=== PATIENT | male | born 1975 | race Caucasian/White ===

== ENCOUNTER 2018-05-09 08:23 | Observation (INO) ==
[2018-05-09 08:58] LABS: Bilirubin,Urine Negative (Negative); Blood,Urine Moderate (Negative); Clarity,Urine Clear (Clear); Color,Urine Yellow (Yellow); Glucose,Urine (UA) 250 mg/dL (Normal); Ketones,Urine Trace mg/dL (Negative); Leukocyte Esterase,Urine Negative (Negative); Nitrite,Urine Negative (Negative); PH,Urine 5.5 pH Units (5.0-8.0); Protein,Urine 30 mg/dL (Neg-Trace); Specific Gravity,Urine > 1.030 (1.010-1.025); Urobilinogen,Urine Normal (Normal)
[2018-05-09] MEDS ORDERED: Ondansetron ODT 4 MG TAB.RAPDIS SL ONE (08:58)
[2018-05-09] MEDS ORDERED: Ketorolac 30 MG/ML VIAL IM ONE (09:00)
[2018-05-09 09:03] LABS: Bacteria,Urine None Seen per hpf (None-Few); Hyaline Casts,Urine Few per lpf (None-Few); RBC,Urine 30-50 per hpf (0-3); Squamous Epithelial Cell,Urine Many per lpf (None-Few)
--- NOTE | 2018-05-09 09:05 | Emergency Department Note ---
Disposition Clinical Impression: Flank pain, Ureteral calculus, MEEK (acute kidney injury) Disposition: Admitted As Inpatient Condition: Fair Referrals: Dong Camarena MD [Primary Care Provider] - Forms: ED Satisfaction Letter, Work/School Release Time of Disposition: 11:18 General Adult HPI - General Chief complaint: ED Abdominal Pain Stated complaint: Possible kidney stone Time Seen by Provider: 05/09/18 08:28 Source: patient, family Limitations: no limitations Nursing Notes Reviewed: Yes Vital Signs Reviewed: Yes - History of Present Illness HPI Narrative: 42-year-old male with a history of multiple sclerosis presents for possible kidney stone. Patient states that this has been going on and off for 2 years but has worsened the past 2 days. Pain is stated to be in the left lower back and comes around to the left lower quadrant of the abdomen and sometimes radiates into the groin. It is an intermittent ache that measures 9 out of 10 at its worst. Right now the pain is 5-6. It is associated with nausea and vomiting. Patient tried naproxen which took the edge off. Patient has never passed a kidney stone in the past 2 years. Patient reports drinking very little water. Patient denies back issues or any other medical history. Patient denies tobacco, alcohol, and drugs. Denies chest pain, shortness of breath, fever, numbness, tingling, loss of appetite, bowel changes, headache, diarrhea, constipation. Pain Scale: 9 - Related Data Home Medications Medication Instructions Recorded Confirmed Sildenafil Citrate [Revatio] 50 - 100 mg PO DAILY PRN 05/09/18 05/09/18 Allergies Allergy/AdvReac Type Severity Reaction Status Date / Time No Known Allergies Allergy Verified 03/25/16 09:31 All systems ED: reviewed and negative except as stated. Past Medical History - Past Medical History Medical history: Reports: other Psychiatric history: Reports: no psych history - Social History Smoking Status: Never smoker Smokeless Tobacco Status: No Alcohol use: Reports: none Drug use: Reports: none Physical Exam - General Limitations: no limitations General appearance: alert, in distress - Head Head exam: atraumatic, normocephalic, normal inspection - Eye Eye exam: Present: normal appearance, PERRL, EOMI - Neck Neck exam: Present: normal inspection, full ROM, trachea midline - Chest Chest inspection: Present: normal inspection, symmetric chest wall rise - Respiratory Respiratory exam: Present: normal lung sounds bilaterally - Cardiovascular Cardiovascular exam: Present: regular rate, normal rhythm, normal heart sounds - Abdominal Exam Abdominal exam: Present: soft, Non-Tender. Absent: tenderness, distention, guarding, rebound, rigidity - Extremities Exam Extremities exam: Present: normal inspection, full ROM. Absent: tenderness, pedal edema - Back Exam Back exam: Present: normal inspection, full ROM. Absent: CVA tenderness (R), CVA tenderness (L) - Neurological Exam Neurological exam: Present: alert, oriented X3, CN II-XII intact - Psychiatric Psychiatric exam: Present: normal affect, normal mood - Skin Skin exam: Present: warm, dry, intact, normal color Course Course Narrative: 42-year-old male with a history of multiple sclerosis presents for possible kidney stone that has been going on for the past 2 years and is much worse the past 2 days. Patient is alert and oriented, hemodynamically stable, and nontoxic appearance. On exam, there is no CVA tenderness or abdominal tenderness. He is now vomiting. Will provide Zofran and Toradol. Will order CT abdomen/pelvis and lab work. - Reevaluation(s) Reevaluation #1: UA reveals high-protein, high glucose, and moderate blood. Elevated WBC 14.1. Checking on patient at 9:47, half hour after med administration, patient states that nausea is gone and that pain is improved to 3/10. CT abdomen/pelvis reveals 5 mm obstructing calculus in the left ureter with moderate hydronephrosis and prostatomegaly. BMP reveals MEEK with Cr 1.41 and GFR 55. Checking on patient at 10:30, patient is again vomiting and complaining of pain. Will provide fentanyl and Phenergan. Discussed with patient about results and admission. Patient voiced understanding and agrees to admission. Spoke with urologist Dr. Richardson and he agrees to serve as consult. Spoke with hospitalist Dr. Luciano who agrees to admit. Time: 11:17 Vital Signs Temperature 98.3 F 05/09/18 08:26 Pulse Rate 83 05/09/18 08:26 Respiratory Rate 18 05/09/18 08:26 Blood Pressure 132/76 05/09/18 08:26 O2 Sat by Pulse Oximetry 99 05/09/18 08:26 Temperature 98.3 F 05/09/18 08:42 Pulse Rate 86 05/09/18 10:52 Respiratory Rate 16 05/09/18 10:52 Blood Pressure 135/79 05/09/18 10:52 O2 Sat by Pulse Oximetry 97 05/09/18 10:52 Oxygen Delivery Oxygen Delivery Room Air Medical Decision Making - Medical Records Medical records reviewed: Yes I reviewed the patient's medical records. - Lab Data Lab results reviewed: Yes I reviewed the patient's lab results. Result diagrams: 05/09/18 09:03 05/09/18 09:03 Lab Results 05/09/18 05/09/18 05/09/18 Range/Units 08:38 09:03 09:03 WBC 14.1 H (4.3-11.1) K/mcL RBC 5.00 (4.19-5.50) M/mcL Hgb 15.2 (12.9-16.9) g/dL Hct 43.5 (37.5-50.1) % MCV 87.0 (83.0-100.0) fL MCH 30.4 (28.0-33.3) pg MCHC 34.9 (31.6-35.5) g/dL RDW 12.2 (11.5-14.5) % Plt Count 287 (140-400) K/mcL MPV 8.9 L (9.4-12.4) fL Immature Gran % 0.6 (0-4) % Seg Neutrophils % 86.6 % Lymphocytes % 5.0 % Monocytes % 7.4 % Eosinophils % 0.1 % Basophils % 0.3 % Neutrophils # 12.2 H (1.6-8.9) K/mcL Lymphocytes # 0.7 (0.6-4.6) K/mcL Monocytes # 1.1 (0.0-1.3) K/mcL Eosinophils # 0.0 (0.0-0.6) K/mcL Basophils # 0.0 (0.0-0.2) K/mcL Sodium 139 (136-145) mEq/L Potassium 4.0 (3.5-5.1) mEq/L Chloride 106 (98-107) mEq/L Carbon Dioxide 25 (23-29) mEq/L BUN 19 (6-20) mg/dL Creatinine 1.41 H (0.70-1.30) mg/dL Est GFR ( Amer) > 60 (> 60) Est GFR (Non-Af Amer) 55 L (> 60) BUN/Creatinine Ratio 13 (6-26) Glucose 112 H (70-105) mg/dL Calculated Osmolality 291 (280-300) Calcium 9.6 (8.6-10.3) mg/dL Urine Color Yellow (Yellow) Urine Clarity Clear (Clear) Urine pH 5.5 (5.0-8.0) pH Units Ur Specific [place] > 1.030 H (1.010-1.025) Urine Protein 30 H (Neg-Trace) mg/dL Urine Glucose (UA) 250 H (Normal) mg/dL Urine Ketones Trace H (Negative) mg/dL Urine Blood Moderate H (Negative) Urine Nitrite Negative (Negative) Urine Bilirubin Negative (Negative) Urine Urobilinogen Normal (Normal) mg/dL Ur Leukocyte Esterase Negative (Negative) Urine Microscopic RBC 30-50 H (0-3) per hpf Urine Microscopic WBC 3-5 H (0-3) per hpf Ur Squamous Epith Cells Many H (None-Few) per lpf Urine Bacteria None Seen (None-Few) per hpf Hyaline Casts Few (None-Few) per lpf Ur Culture Indicated? NO (NO) - Radiology Data Radiology results reviewed: Yes I reviewed the patient's radiology results. CT abdomen/pelvis 05/09/2018. 5 mm obstructing calculus left ureter with moderate hydronephrosis. Prostatomegaly.
[2018-05-09] MEDS ORDERED: Ondansetron 4 MG/2 ML VIAL IVP ONE ×3 (09:06→18:33)
[2018-05-09] MEDS ORDERED: Ketorolac 15 MG/ML VIAL IVP ONE (09:07)
[2018-05-09] MEDS ORDERED: 0.9 % Sodium Chloride 1,000 ML IVC ONE (09:08)
[2018-05-09 09:12] LABS: Basophils % 0.3 %; Eosinophils % 0.1 %; Hematocrit 43.5 % (37.5-50.1); Hemoglobin 15.2 g/dL (12.9-16.9); Immature Granulocytes % 0.6 % (0-4); Lymphocytes # 0.7 K/mcL (0.6-4.6); Mean Corpuscular HGB Conc 34.9 g/dL (31.6-35.5); Mean Corpuscular Hemoglobin 30.4 pg (28.0-33.3); Mean Platelet Volume 8.9 fL (9.4-12.4); Monocytes # 1.1 K/mcL (0.0-1.3); Monocytes % 7.4 %; Neutrophils # 12.2 K/mcL (1.6-8.9); Platelet Count 287 K/mcL (140-400); Red Cell Distribution Width 12.2 % (11.5-14.5); Segmented Neutrophils % 86.6 %
[2018-05-09 09:37] LABS: BUN/Creatinine Ratio 13 (6-26); Blood Urea Nitrogen 19 mg/dL (6-20); Calcium 9.6 mg/dL (8.6-10.3); Carbon Dioxide 25 mEq/L (23-29); Chloride 106 mEq/L (98-107); Glucose 112 mg/dL (70-105); Osmolality,Calculated 291 (280-300); Sodium 139 mEq/L (136-145); eGFR For Non-African Americans 55 (> 60)
--- NOTE | 2018-05-09 09:52 | Emergency Department Note ---
Disposition Clinical Impression: Flank pain Disposition: Still a Patient Forms: ED Satisfaction Letter, Work/School Release General Adult HPI - General Chief complaint: ED Abdominal Pain Stated complaint: Possible kidney stone Time Seen by Provider: 05/09/18 08:28 Source: patient, family Limitations: no limitations - History of Present Illness Pain Scale: 9 - Related Data Home Medications Medication Instructions Recorded Confirmed Ampyra 03/25/16 Diazepam 03/25/16 Gabapentin 03/25/16 Multivitamin 03/25/16 PredniSONE 03/25/16 Viagra 03/25/16 Allergies Allergy/AdvReac Type Severity Reaction Status Date / Time No Known Allergies Allergy Verified 03/25/16 09:31 Past Medical History - Past Medical History Medical history: Reports: other Psychiatric history: Reports: no psych history - Social History Smoking Status: Never smoker Smokeless Tobacco Status: No Alcohol use: Reports: none Drug use: Reports: none Physical Exam - General Limitations: no limitations General appearance: alert, in distress Course Vital Signs Temperature 98.3 F 05/09/18 08:26 Pulse Rate 83 05/09/18 08:26 Respiratory Rate 18 05/09/18 08:26 Blood Pressure 132/76 05/09/18 08:26 O2 Sat by Pulse Oximetry 99 05/09/18 08:26 Temperature 98.3 F 05/09/18 08:42 Pulse Rate 94 05/09/18 09:04 Respiratory Rate 18 05/09/18 08:42 Blood Pressure 132/84 05/09/18 09:04 O2 Sat by Pulse Oximetry 98 05/09/18 09:04 Oxygen Delivery Oxygen Delivery Room Air Medical Decision Making - Lab Data Result diagrams: 05/09/18 09:03 05/09/18 09:03 Lab Results 05/09/18 05/09/18 05/09/18 Range/Units 08:38 09:03 09:03 WBC 14.1 H (4.3-11.1) K/mcL RBC 5.00 (4.19-5.50) M/mcL Hgb 15.2 (12.9-16.9) g/dL Hct 43.5 (37.5-50.1) % MCV 87.0 (83.0-100.0) fL MCH 30.4 (28.0-33.3) pg MCHC 34.9 (31.6-35.5) g/dL RDW 12.2 (11.5-14.5) % Plt Count 287 (140-400) K/mcL MPV 8.9 L (9.4-12.4) fL Immature Gran % 0.6 (0-4) % Seg Neutrophils % 86.6 % Lymphocytes % 5.0 % Monocytes % 7.4 % Eosinophils % 0.1 % Basophils % 0.3 % Neutrophils # 12.2 H (1.6-8.9) K/mcL Lymphocytes # 0.7 (0.6-4.6) K/mcL Monocytes # 1.1 (0.0-1.3) K/mcL Eosinophils # 0.0 (0.0-0.6) K/mcL Basophils # 0.0 (0.0-0.2) K/mcL Sodium 139 (136-145) mEq/L Potassium 4.0 (3.5-5.1) mEq/L Chloride 106 (98-107) mEq/L Carbon Dioxide 25 (23-29) mEq/L BUN 19 (6-20) mg/dL Creatinine 1.41 H (0.70-1.30) mg/dL Est GFR ( Amer) > 60 (> 60) Est GFR (Non-Af Amer) 55 L (> 60) BUN/Creatinine Ratio 13 (6-26) Glucose 112 H (70-105) mg/dL Calculated Osmolality 291 (280-300) Calcium 9.6 (8.6-10.3) mg/dL Urine Color Yellow (Yellow) Urine Clarity Clear (Clear) Urine pH 5.5 (5.0-8.0) pH Units Ur Specific [place] > 1.030 H (1.010-1.025) Urine Protein 30 H (Neg-Trace) mg/dL Urine Glucose (UA) 250 H (Normal) mg/dL Urine Ketones Trace H (Negative) mg/dL Urine Blood Moderate H (Negative) Urine Nitrite Negative (Negative) Urine Bilirubin Negative (Negative) Urine Urobilinogen Normal (Normal) mg/dL Ur Leukocyte Esterase Negative (Negative) Urine Microscopic RBC 30-50 H (0-3) per hpf Urine Microscopic WBC 3-5 H (0-3) per hpf Ur Squamous Epith Cells Many H (None-Few) per lpf Urine Bacteria None Seen (None-Few) per hpf Hyaline Casts Few (None-Few) per lpf Ur Culture Indicated? NO (NO) Attestation Statement - Attestation Attestation: I examined this patient and my medical decision-making was reviewed with the Resident Physician. I agree with the documented findings, disposition and treatment plan as described except to the extent set forth below. 42 year old male presents to the ED with complaints of left flank pain and states that he is having pain wit uriation. PAtinet states that he thinks he may have a kidney stone although he does not have a history of kidney stones. Patient has blood present in his urine without bacteria and appears uncomfortable at bedside. We will obtain a CT and give relief per IV meds.
[2018-05-09] MEDS ORDERED: *HR* FentaNYL (PF) 100 MCG/2 ML VIAL IVP ONE (10:21)
[2018-05-09] MEDS ORDERED: *HR* Promethazine 25 MG/ML VIAL IVP ONE (10:40)
[2018-05-09] MEDS ORDERED: Naloxone 0.4 MG/ML INJ IVP PRN ×2 (12:23→20:54)
[2018-05-09] MEDS ORDERED: *HR* FentaNYL (PF) 100 MCG/2 ML VIAL IVP PRN (12:26)
[2018-05-09] MEDS ORDERED: Ketorolac 30 MG/ML VIAL IVP PRN ×2 (12:26→20:54)
[2018-05-09] MEDS ORDERED: Ondansetron 4 MG/2 ML VIAL IVP PRN ×2 (12:30→20:54)
--- NOTE | 2018-05-09 12:32 | Internal Med History&Physical ---
<Cally Ly Rachana - Last Filed: 05/09/18 17:25> Date of Encounter: 05/09/18 Time of Encounter: 12:32 Internal Medicine - H&P: HPI Chief complaint: Left flank pain Admitted From: Home Plans for Post Hospital Care: Home History of present illness: Mr. Garcia is a 42 year old male with history of MS, diagnosed 8 years ago. The patient indicated that he began to have left flank pain. No difficulty urinating at this time. The patient indicated that the pain was 9-10/10. The patient denies hematuria. He was given toradol and fentanyl in the ED with relief. Ct of abd/pelvis showed a moderate left sided hydronephrosis and 5 mm obstructing calculus in the left proximal ureter. The patient was seen in the ED by urology and there are plans for surgery this afternoon. The patient creat is marginally elevated at 1.41. Plan for npo status and fluid hydration for now. Pain control. Past Med Surg Social Fam HX - Past Medical History Medical history: other Additional medical history: MS Psychiatric history: no psych history - Past Surgical History Additional surgical history: bilateral knee reconstruction - Social History Smoking Status: Never smoker Smokeless Tobacco Status: No Alcohol use: none Drug use: none Internal Medicine - H&P: Meds Sildenafil Citrate [Revatio] 50 - 100 mg PO DAILY PRN 05/09/18 [History] 3 Allergy/AdvReac Type Severity Reaction Status Date / Time No Known Allergies Allergy Verified 03/25/16 09:31 All Systems PM: A 10-system review of systems was performed and is negative for pertinent findings except as documented above in the HPI. - Constitutional Constitutional: no chills, no fever(s), no night sweats - EENT Eyes: no change in vision, no discharge, no pain, no photophobia Ears: no ear discharge, no ear pain, no tinnitus Nose, mouth and throat: no dysphagia, no nasal discharge, no neck pain, no sore throat - Cardiovascular Cardiovascular ROS IM: no chest pain, no diaphoresis, no dyspnea, no lightheadedness, no palpitations, no syncope - Respiratory Respiratory: no cough, no dyspnea, no wheezing, no excessive phlegm production - Gastrointestinal Gastrointestinal: nausea, no abdominal pain, no diarrhea, no hematemesis, no hematochezia, no melena, no vomiting - Genitourinary Genitourinary ROS male: flank pain, no hematuria - Musculoskeletal Musculoskeletal ROS IM: no numbness, no tingling - Integumentary Integumentary IM: no rash, no unusual bruising - Neurological Neurological ROS: no confusion, no convulsions, no focal weakness, no numbness, no tingling, no tremor(s) - Hematologic/Lymphatic Hematologic/Lymphatic: no easy bruising - Constitutional Vitals: Temp Pulse Resp BP Pulse Ox 98.3 F 86 16 122/68 97 05/09/18 08:42 05/09/18 10:52 05/09/18 11:27 05/09/18 11:27 05/09/18 10:52 General appearance: Present: A&O X 3, answers questions appropriately - Head Head exam: Present: atraumatic, normocephalic - Eye Eye exam: Present: PERRL, conjuntiva pink, sclera anicteric Pupils: Present: PERRL - Neck Neck exam general surgery: Present: supple, trachea midline. Absent: lymphadenopathy - Respiratory Respiratory exam: Present: CTAB. Absent: accessory muscle use, rales, rhonchi, wheezes - Cardiovascular Cardiovascular exam: Present: RRR, +S1, +S2. Absent: diastolic murmur, gallop, rubs, systolic murmur - GI/Abdominal GI/Abdominal exam: Present: normal bowel sounds, soft, no peritoneal signs. Absent: distended, tenderness - Extremities Exam Extremities exam: Present: warm, radial pulses palpable and symmetrical. Absent : calf tenderness, cyanotic, pedal edema - Neurological Exam Neurological exam: Present: CN II-XII intact, oriented X3, no focal deficits. Absent: pronater drift, facial droop, speech deficit - Skin Skin exam: Present: dry, intact Internal Med - H&P Results - Labs CBC & Chem 7: 05/09/18 09:03 05/09/18 09:03 - Assessment and plan (1) Ureteral calculus Current Visit: Yes Status: Acute Assessment and plan: Patient here with Left flank pain that was intermittent over the past 2 days. 5MM obstructing stone was seen in the left proximal ureter along with mild hydronephrosis and prostate enlargement. Strain all urine Urology was consulted [facility]'s Pain control Monitor daily labs (2) MEEK (acute kidney injury) Current Visit: Yes Status: Acute Assessment and plan: Monitor daily labs Gentle IVF's Strict I's and O's (3) Multiple sclerosis Current Visit: Yes Status: Chronic Assessment and plan: Controlled. Managed outpatient. - Time Spent With Patient Total time spent is greater than 50% in coordination of care (as documented) at patient's floor/unit and/or counseling patient: less than 15 minutes <AkbarJana herrera - Last Filed: 05/09/18 19:54> Date of Encounter: 05/09/18 Internal Medicine - H&P: HPI Admitted From: Home Plans for Post Hospital Care: Home History of present illness: Mr. Garcia is a 42 year old male that presented with left flank pain and was found to have left obstructing renal calculi. All Systems PM: A 10-system review of systems was performed and is negative for pertinent findings except as documented above in the HPI. - Constitutional Vitals: Temp Pulse Resp BP Pulse Ox 98.6 F 93 14 126/74 97 05/09/18 19:29 05/09/18 19:29 05/09/18 19:29 05/09/18 19:29 05/09/18 19:29 General appearance: Present: A&O X 3, no acute distress - Head Head exam: Present: atraumatic, normocephalic - Eye Eye exam: Present: PERRL, conjuntiva pink, sclera anicteric Pupils: Present: PERRL - Neck Neck exam general surgery: Present: supple, trachea midline. Absent: lymphadenopathy - Respiratory Respiratory exam: Present: CTAB. Absent: accessory muscle use, rales, rhonchi, wheezes - Cardiovascular Cardiovascular exam: Present: RRR, +S1, +S2. Absent: diastolic murmur, gallop, rubs, systolic murmur - GI/Abdominal GI/Abdominal exam: Present: normal bowel sounds, soft, no peritoneal signs. Absent: distended, tenderness - Extremities Exam Extremities exam: Present: warm, radial pulses palpable and symmetrical. Absent : calf tenderness, cyanotic, pedal edema - Neurological Exam Neurological exam: Present: CN II-XII intact, oriented X3, no focal deficits. Absent: pronater drift, facial droop, speech deficit - Skin Skin exam: Present: dry, intact Internal Med - H&P Results - Labs CBC & Chem 7: 05/09/18 09:03 05/09/18 09:03 - Attending Attestation I performed a history and physical exam of the patient and discussed his management with the INSURANCE COUNSELOR. I reviewed the INSURANCE COUNSELOR's note and agree with the documented findings and plan of care. - Time Spent With Patient Total time spent is greater than 50% in coordination of care (as documented) at patient's floor/unit and/or counseling patient: 25 - 35 minutes
[2018-05-09] MEDS ORDERED: *HR* OxyCODONE Immed Rel 5 MG TABLET PO PRN ×4 (12:43→20:54)
[2018-05-09] MEDS ORDERED: *HR* Morphine 2 MG/ML SYRINGE IVP ONE (12:44)
--- NOTE | 2018-05-09 12:58 | Urology - Consult Note ---
<Dulce Maria Jordan N - Last Filed: 05/09/18 14:04> Date of Encounter: 05/09/18 Time of Encounter: 11:30 - Assessment and Plan (1) Ureteral calculus Current Visit: Yes Status: Acute Assessment and plan: Patient is a 42 year old male who presented to the Emergency Department with a 5mm left proximal ureteral stone. I discussed with the patient and his the risks and benefits of a ureteroscopic stone extraction with holmium laser lithotripsy and basket retrieval. Patient and his verbalize understanding and wish to proceed with surgery. I also specifically counseled him on the possibility of two procedures being required to fully extract the proximal stone , including ureteral stent placement. The patient agrees, consent is signed, patient and wishes to proceed. Patient is admitted to the hospitalist service and is NPO. Urology CN:HPI Consult date: 05/09/18 Reason for consult Urology: Other (left ureteral stone) History of present illness: She was a 42-year-old male who presents the emergency department with abdominal pain difficult urination. The patient states his acute symptoms began 2 days ago with worsening colicky abdominal pain, urinary frequency and urinary hesitancy. The patient states this is the first renal or ureteral stone he is experienced; however patient states he has noticed intermittent back pain and changes in his voiding stream over the last 2 years. Patient was unsure if voiding difficulty was due to Multiple Sclerosis, so he has not reported this to PCP or sought urology referral. The patient is currently resting comfortably and denies fever, chills, dysuria or hematuria. Past Med Surg Social Fam HX - Past Medical History Medical history: other Additional medical history: MS Psychiatric history: no psych history - Past Surgical History Additional surgical history: bilateral knee reconstruction - Social History Smoking Status: Never smoker Smokeless Tobacco Status: No Alcohol use: none Drug use: none Medications and Allergies Sildenafil Citrate [Revatio] 50 - 100 mg PO DAILY PRN 05/09/18 [History] 3 Allergy/AdvReac Type Severity Reaction Status Date / Time No Known Allergies Allergy Verified 03/25/16 09:31 Review of Systems - Constitutional as per HPI, no chills, no fatigue, no fever(s) - EENT Nose, mouth and throat: no dizziness, no headache(s) - Cardiovascular no chest pain, no dyspnea - Respiratory no cough, no dyspnea - Gastrointestinal abdominal pain, nausea, no change in bowel habits, no vomiting - Genitourinary change in urinary stream, difficulty urinating, urinary frequency, urinary hesitancy, urinary urgency, no dysuria, no flank pain, no hematuria, no testicular pain - Musculoskeletal no back pain, no muscle weakness - Integumentary no rash, no swelling - Neurological no confusion, no syncope - Psychiatric no anxiety, no confusion Exam Initial Vital Signs Temp Pulse Resp BP Pulse Ox 98.3 F 83 18 132/76 99 05/09/18 08:26 05/09/18 08:26 05/09/18 08:26 05/09/18 08:26 05/09/18 08:26 - General physical appearance Present: well developed, well nourished, no distress, no pain - Eyes Present: PERRL, normal ocular movement - ENT Present: normal nares. Absent: nasal discharge - Neck Present: no masses, trachea midline - Respiratory Present: normal respiratory effort - Cardiovascular Cardiovascular exam IM: RRR - Abdomen Abdomen: Present: soft, non tender - Genitourinary other (no CVAT) - Integumentary Present: no rash, no abnormal pigmentation - Neurologic Present: normal coordination. Absent: disoriented - Musculoskeletal Present: other (normal posture, no pedal edema ) Urology Results - Labs 05/09/18 09:03 05/09/18 09:03 Abnormal lab results WBC 14.1 K/mcL (4.3-11.1) H 05/09/18 09:03 MPV 8.9 fL (9.4-12.4) L 05/09/18 09:03 Neutrophils # 12.2 K/mcL (1.6-8.9) H 05/09/18 09:03 Creatinine 1.41 mg/dL (0.70-1.30) H 05/09/18 09:03 Est GFR (Non-Af Amer) 55 (> 60) L 05/09/18 09:03 Glucose 112 mg/dL (70-105) H 05/09/18 09:03 Ur Specific [place] > 1.030 (1.010-1.025) H 05/09/18 08:38 Urine Protein 30 mg/dL (Neg-Trace) H 05/09/18 08:38 Urine Glucose (UA) 250 mg/dL (Normal) H 05/09/18 08:38 Urine Ketones Trace mg/dL (Negative) H 05/09/18 08:38 Urine Blood Moderate (Negative) H 05/09/18 08:38 Urine Microscopic RBC 30-50 per hpf (0-3) H 05/09/18 08:38 Urine Microscopic WBC 3-5 per hpf (0-3) H 05/09/18 08:38 Ur Squamous Epith Cells Many per lpf (None-Few) H 05/09/18 08:38 All other labs normal. - Imaging CT scan - abdomen: report reviewed, image reviewed CT scan - pelvis: report reviewed, image reviewed Consult Discharge Plan - Plan Referrals: Dong Camarena MD [Primary Care Provider] - <Jovany Richardson - Last Filed: 05/09/18 18:15> Date of Encounter: 05/09/18 Exam Initial Vital Signs Temp Pulse Resp BP Pulse Ox 98.3 F 83 18 132/76 99 05/09/18 08:26 05/09/18 08:26 05/09/18 08:26 05/09/18 08:26 05/09/18 08:26 Urology Results - Labs 05/09/18 09:03 05/09/18 09:03 Abnormal lab results WBC 14.1 K/mcL (4.3-11.1) H 05/09/18 09:03 MPV 8.9 fL (9.4-12.4) L 05/09/18 09:03 Neutrophils # 12.2 K/mcL (1.6-8.9) H 05/09/18 09:03 Creatinine 1.41 mg/dL (0.70-1.30) H 05/09/18 09:03 Est GFR (Non-Af Amer) 55 (> 60) L 05/09/18 09:03 Glucose 112 mg/dL (70-105) H 05/09/18 09:03 Ur Specific [place] > 1.030 (1.010-1.025) H 05/09/18 08:38 Urine Protein 30 mg/dL (Neg-Trace) H 05/09/18 08:38 Urine Glucose (UA) 250 mg/dL (Normal) H 05/09/18 08:38 Urine Ketones Trace mg/dL (Negative) H 05/09/18 08:38 Urine Blood Moderate (Negative) H 08/08/18 08:38 Urine Microscopic RBC 30-50 per hpf (0-3) H 18 08:38 Urine Microscopic WBC 3-5 per hpf (0-3) H 18 08:38 Ur Squamous Epith Cells Many per lpf (None-Few) H 18 08:38 All other labs normal. - Attending Attestation The patient was seen and examined with the PA. He has a left proximal ureteral stone. Plan for left ureteroscopy, laser lithotripsy, and stent placement. He was informed of the risks of the procedure including but not limited to bleeding , infection, injury to other structures, need for further procedures, stent irritation, incomplete fragmentation, ureteral perforation, need for nephrostomy tube, need for open repair, risks unforeseen, and the risk of anesthesia. He is willing to proceed. He denies any family history of nephrolithiasis. His does have a history of stones, but his parents do not have stones.
[2018-05-09] MEDS: 0.9 % Sodium Chloride 1,000 ML IVC SCH ×3 (14:06→21:55)
--- NOTE | 2018-05-09 17:08 | Anesthesia Evaluation PreOp ---
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 (MS dx 2009 [not currently medicated]) Other Medical History: Denies Any Significant HX Anesthesia History: No Prior Anesthetic Complications, Past Anesthesia (B - corrective knee surgery/reconstruction [for Bowed legs], collar bone repair) Alcohol Use: none Drug use: none Medications and Allergies Sildenafil Citrate [Revatio] 50 - 100 mg PO DAILY PRN 05/09/18 [History] 3 Allergy/AdvReac Type Severity Reaction Status Date / Time No Known Allergies Allergy Verified 03/25/16 09:31 - Meds/Allergy Pre-op Review Medications Reviewed: Yes Allergies Reviewed: Yes Beta Blockers on Current Med List: No Anesthesia Results - Labs 05/09/18 09:03 05/09/18 09:03 Laboratory Results WBC 14.1 K/mcL (4.3-11.1) H 05/09/18 09:03 RBC 5.00 M/mcL (4.19-5.50) 05/09/18 09:03 Hgb 15.2 g/dL (12.9-16.9) 05/09/18 09:03 Hct 43.5 % (37.5-50.1) 05/09/18 09:03 MCV 87.0 fL (83.0-100.0) 05/09/18 09:03 MCH 30.4 pg (28.0-33.3) 05/09/18 09:03 MCHC 34.9 g/dL (31.6-35.5) 05/09/18 09:03 RDW 12.2 % (11.5-14.5) 05/09/18 09:03 Plt Count 287 K/mcL (140-400) 05/09/18 09:03 MPV 8.9 fL (9.4-12.4) L 05/09/18 09:03 Immature Gran % 0.6 % (0-4) 05/09/18 09:03 Seg Neutrophils % 86.6 % 05/09/18 09:03 Lymphocytes % 5.0 % 05/09/18 09:03 Monocytes % 7.4 % 05/09/18 09:03 Eosinophils % 0.1 % 05/09/18 09:03 Basophils % 0.3 % 05/09/18 09:03 Neutrophils # 12.2 K/mcL (1.6-8.9) H 05/09/18 09:03 Lymphocytes # 0.7 K/mcL (0.6-4.6) 05/09/18 09:03 Monocytes # 1.1 K/mcL (0.0-1.3) 05/09/18 09:03 Eosinophils # 0.0 K/mcL (0.0-0.6) 05/09/18 09:03 Basophils # 0.0 K/mcL (0.0-0.2) 05/09/18 09:03 Sodium 139 mEq/L (136-145) 05/09/18 09:03 Potassium 4.0 mEq/L (3.5-5.1) 05/09/18 09:03 Chloride 106 mEq/L (98-107) 05/09/18 09:03 Carbon Dioxide 25 mEq/L (23-29) 05/09/18 09:03 BUN 19 mg/dL (6-20) 05/09/18 09:03 Creatinine 1.41 mg/dL (0.70-1.30) H 05/09/18 09:03 Est GFR ( Amer) > 60 (> 60) 05/09/18 09:03 Est GFR (Non-Af Amer) 55 (> 60) L 05/09/18 09:03 BUN/Creatinine Ratio 13 (6-26) 05/09/18 09:03 Glucose 112 mg/dL (70-105) H 05/09/18 09:03 Calculated Osmolality 291 (280-300) 05/09/18 09:03 Calcium 9.6 mg/dL (8.6-10.3) 05/09/18 09:03 Urine Color Yellow (Yellow) 05/09/18 08:38 Urine Clarity Clear (Clear) 05/09/18 08:38 Urine pH 5.5 pH Units (5.0-8.0) 05/09/18 08:38 Ur Specific [place] > 1.030 (1.010-1.025) H 05/09/18 08:38 Urine Protein 30 mg/dL (Neg-Trace) H 05/09/18 08:38 Urine Glucose (UA) 250 mg/dL (Normal) H 05/09/18 08:38 Urine Ketones Trace mg/dL (Negative) H 05/09/18 08:38 Urine Blood Moderate (Negative) H 05/09/18 08:38 Urine Nitrite Negative (Negative) 05/09/18 08:38 Urine Bilirubin Negative (Negative) 05/09/18 08:38 Urine Urobilinogen Normal mg/dL (Normal) 05/09/18 08:38 Ur Leukocyte Esterase Negative (Negative) 05/09/18 08:38 Urine Microscopic RBC 30-50 per hpf (0-3) H 05/09/18 08:38 Urine Microscopic WBC 3-5 per hpf (0-3) H 05/09/18 08:38 Ur Squamous Epith Cells Many per lpf (None-Few) H 05/09/18 08:38 Urine Bacteria None Seen per hpf (None-Few) 05/09/18 08:38 Hyaline Casts Few per lpf (None-Few) 05/09/18 08:38 Ur Culture Indicated? NO (NO) 05/09/18 08:38 Impressions Abdomen/Pelvis CT 05/09/18 08:57 IMPRESSION: Moderate left-sided hydronephrosis due to a 5 mm obstructing calculus in the left proximal ureter. Prostatomegaly. D/ / González Valenzuela MD / González Valenzuela MD Interpreting Provider: González Valenzuela MD Anesthesia Exam Vital Signs Temp Pulse Resp BP Pulse Ox 05/09/18 13:36 99.3 F 91 15 125/74 99 05/09/18 11:27 16 122/68 05/09/18 10:52 86 16 135/79 97 05/09/18 10:14 99 22 100 05/09/18 09:04 94 132/84 98 05/09/18 08:42 98.3 F 83 18 132/76 99 05/09/18 08:26 98.3 F 83 18 132/76 99 Intake and Output 05/09/18 05/09/18 05/09/18 07:59 15:59 23:59 Intake Total 1000 / 1000 Balance 1000 / 1000 Intake: IV Fluids 1000 / 1000 0.9 % Sodium Chloride 1,000 ML 1000 / 1000 @ 999 mls/hr IVC .Q1H1M ONE Rx# :[id number] Other: Meal NPO Stool Characteristics Normal for Patient Weight 73.028 kg Patient Weight 05/09/18 23:59 Weight 73.028 kg Height: 6' Weight: 161# BMI = 22 NPO (# of Hours): MNoc - HEENT Pupil (Motor): Pupils equal, EOMI Mallampati: II Teeth: Normal Oral Opening: Greater than 3 - GREEN FEED ATTENDANT LOC: Oriented GREEN FEED ATTENDANT Motor: Normal RUE, Normal LUE, Normal RLE, Normal LLE, Normal Face GREEN FEED ATTENDANT Sensory: Normal: RUE, LUE, RLE, LLE, Face - Cardiac Rhythm: Regular Murmur: None - Pulmonary Breath Sounds: bilateral Clear Respiratory Effort: Symmetrical Anesthesia Assess/Plan ASA Score: 2 Modified [place] Scale for Level of Consciousness: Cooperative, oriented, and tranquil Anesthetic Plan: General Monitoring Plan: Standard Monitors Recovery Plan: PACU Anes Supervising Prov Stmt: PT seen/evaluated, R&B discussed, questions answered and consent obtained. Suzi Mcleod MD
[2018-05-09] MEDS ORDERED: Acetaminophen IV 1,000 MG/100 ML INFUS..BTL ONE (17:44)
[2018-05-09] MEDS ORDERED: Dexamethasone 4 MG/ML VIAL ONE ×2 (18:04→18:27)
[2018-05-09] MEDS ORDERED: *HR* FentaNYL (PF) 100 MCG/2 ML VIAL ONE (18:04)
[2018-05-09] MEDS ORDERED: Lidocaine -MPF 2% 2 ML VIAL ONE (18:04)
[2018-05-09] MEDS ORDERED: *HR* Propofol 200 MG/20 ML VIAL IVP ONE (18:04)
[2018-05-09] MEDS ORDERED: Ondansetron 4 MG/2 ML VIAL ONE (18:04)
[2018-05-09] MEDS ORDERED: *HR* Midazolam HCl 2 MG/2 ML VIAL ONE (18:09)
[2018-05-09] MEDS ORDERED: *HR* Meperidine 25 MG/ML SYRINGE IVP PRN (18:33)
[2018-05-09] MEDS ORDERED: *HR* Promethazine 25 MG/ML VIAL IVP PRN (18:33)
[2018-05-09] MEDS ORDERED: Dexamethasone 4 MG/ML VIAL IVP ONE (18:33)
[2018-05-09] MEDS ORDERED: *HR* HYDROmorphone (PF) 1 MG/ML SYRINGE IVP PRN (18:33)
--- NOTE | 2018-05-09 19:06 | Operative Note ---
Date of procedure: 05/09/18 Pre-op diagnosis: Left ureteral stone Post-op diagnosis: same Procedure: Left ureteroscopy, basket stone extraction, left ureteral stent placement Implants: 6-Moz[place] by 28 cm double-J stent Complications: None Anesthesia: GETA Surgeon: Jovany Richardson Was there an itinerant teacher assistant present: No Estimated blood loss (cc): 1 Specimen: Left ureteral stone Condition: stable Disposition: PACU Procedure in Detail: Indications: Mr. Garcia is a 42-year-old male who has a history of left flank pain. A CT scan showed a stone within his left proximal ureter. He elected to undergo a left ureteroscopy, laser lithotripsy, and basket stone extraction with stent placement. He was aware of the risks of the procedure including but not limited to bleeding, infection, injury to other structures, need for further procedures , stent irritation, need for nephrostomy tube, need for open repair, risks otherwise unforeseen, and the risk of anesthesia. He is willing to proceed. Procedure in Detail: After informed consent was obtained the patient was brought back to the operating room and placed in supine position. A time out was performed. General anesthesia was administered and an LMA was placed. He was then placed in the lithotomy position. He was prepped and draped in the usual sterile fashion. Cystoscopy was performed. The anterior urethra was normal. There was no evidence of bladder tumors. The ureteral orifices were in the normal orthotopic position. There was no duplication of the ureteral orifices. The zip wire was placed in the left ureteral orifice. The wire was then brought up into the kidney under fluoroscopic guidance. I then passed the 8/10 [place] ureteral dilator. The dilator was removed. I advanced a semirigid ureteroscope into the kidney. The stone had moved into the kidney with passage of the wire. A sensor wire was placed in the scope was removed. The flexible ureteroscope was then advanced into the kidney. The stone was seen in the upper pole calyx. The stone was basketed. The proximal ureter was tight and in removal the stone broke while in the basket. One fragment was removed. The ureteroscope was advanced alongside the zip wire and brought into the proximal ureter. The remaining stone fragments were basket extracted. There was no injury to the ureter. The scope was removed. A 6 [place] by 28cm JJ stent was then placed. The dangle strings were left intact and secured to the penis with a Tegaderm. The bladder was drained. The patient was then awakened from general anesthesia and brought to recovery room in good condition. All sponge, needle, and instrument counts were correct.
--- NOTE | 2018-05-09 19:35 | Anesthesia Evaluation Post Op ---
Date of Encounter: 05/09/18 Time of Encounter: 19:34 - Vital Signs Vital Signs: Vital Signs/O2 Sat, Most Current Temp Pulse Resp BP Pulse Ox 98.6 F 93 14 126/74 97 05/09/18 19:29 05/09/18 19:29 05/09/18 19:29 05/09/18 19:29 05/09/18 19:29 - Lungs Lungs: Clear Ascult./Percussion - Airway Airway: Non-obstructed - Cardiovascular Regular Rate - Mental Status Mental Status: Asleep with brisk response to light stimulation - Pain Pain Scale: 0 - Nausea Vomiting Nausea Vomiting: Not Present - Hydration Hydration: NPO - Discharge PostOp Status: Transfer Patient to floor Attestation: I have assessed this patient and find they meet discharge criteria.
[2018-05-10] MEDS: 0.9 % Sodium Chloride 1,000 ML IVC SCH (03:23)
[2018-05-10 06:08] LABS: Basophils % 0.1 %; Hematocrit 39.2 % (37.5-50.1); Immature Granulocytes % 0.6 % (0-4); Lymphocytes # 0.8 K/mcL (0.6-4.6); Lymphocytes % 5.5 %; Mean Corpuscular HGB Conc 34.7 g/dL (31.6-35.5); Mean Corpuscular Hemoglobin 30.8 pg (28.0-33.3); Mean Corpuscular Volume 88.7 fL (83.0-100.0); Mean Platelet Volume 9.3 fL (9.4-12.4); Monocytes # 0.9 K/mcL (0.0-1.3); Monocytes % 6.2 %; Neutrophils # 12.1 K/mcL (1.6-8.9); Platelet Count 256 K/mcL (140-400); Red Blood Count 4.42 M/mcL (4.19-5.50); Red Cell Distribution Width 12.5 % (11.5-14.5); Segmented Neutrophils % 87.6 %
[2018-05-10 06:15] LABS: Hemoglobin 13.6 g/dL (12.9-16.9)
[2018-05-10 06:31] LABS: BUN/Creatinine Ratio 15 (6-26); Blood Urea Nitrogen 16 mg/dL (6-20); Calcium 9.1 mg/dL (8.6-10.3); Carbon Dioxide 21 mEq/L (23-29); Chloride 109 mEq/L (98-107); Glucose 151 mg/dL (70-105); Osmolality,Calculated 292 (280-300); Potassium 4.1 mEq/L (3.5-5.1); Sodium 139 mEq/L (136-145); eGFR For Non-African Americans > 60 (> 60)
[2018-05-10 07:03] VITALS: BP 123/75
--- NOTE | 2018-05-10 09:13 | Urology Progress Note ---
Date of Encounter: 05/10/18 Time of Encounter: 09:10 - Assessment and Plan (1) Ureteral calculus Current Visit: Yes Status: Acute Assessment and plan: Patient is a 42-year-old male who is one day status post left ureteroscopic stone extraction. Patient is feeling well with no concerns. I reviewed postoperative restrictions, expectations, activity, and follow-up. I also advised the patient to self remove his stent on Monday. Progress Note Subjective: no new complaints, feels better, tolerating a regular diet, afebrile Narrative: Patient seen and examined sitting upright in bed in no apparent distress. Patient is feeling much better and has no new concerns. Patient is tolerating normal diet and voiding without difficulty. Patient denies significant pain, chest pain, shortness of breath, fever, chills, calf pain. Patient verbalizes desire for discharge. Objective Initial Vital Signs Temp Pulse Resp BP Pulse Ox 98.3 F 83 18 132/76 99 05/09/18 08:26 05/09/18 08:26 05/09/18 08:26 05/09/18 08:26 05/09/18 08:26 - General physical appearance Present: well developed, well nourished, no distress, no pain - Respiratory Present: normal expansion, normal respiratory effort - Abdomen Present: soft, non tender - Genitourinary Present: other (no CVAT) - Integumentary Present: no rash, no abnormal pigmentation - Musculoskeletal Present: normal gait, normal posture - Psychiatric Present: oriented to time, oriented to person, oriented to place, speech is normal, memory intact - Labs 05/10/18 05:50 05/10/18 05:50 Diabetes panel 05/10/18 Range/Units 05:50 Sodium 139 (136-145) mEq/L Potassium 4.1 (3.5-5.1) mEq/L Chloride 109 H (98-107) mEq/L Carbon Dioxide 21 L (23-29) mEq/L BUN 16 (6-20) mg/dL Creatinine 1.09 (0.70-1.30) mg/dL Glucose 151 H (70-105) mg/dL Calcium 9.1 (8.6-10.3) mg/dL Calcium panel 05/10/18 Range/Units 05:50 Calcium 9.1 (8.6-10.3) mg/dL Pituitary panel 05/10/18 Range/Units 05:50 Sodium 139 (136-145) mEq/L Potassium 4.1 (3.5-5.1) mEq/L Chloride 109 H (98-107) mEq/L Carbon Dioxide 21 L (23-29) mEq/L BUN 16 (6-20) mg/dL Creatinine 1.09 (0.70-1.30) mg/dL Glucose 151 H (70-105) mg/dL Calcium 9.1 (8.6-10.3) mg/dL Adrenal panel 05/10/18 Range/Units 05:50 Sodium 139 (136-145) mEq/L Potassium 4.1 (3.5-5.1) mEq/L Chloride 109 H (98-107) mEq/L Carbon Dioxide 21 L (23-29) mEq/L BUN 16 (6-20) mg/dL Creatinine 1.09 (0.70-1.30) mg/dL Glucose 151 H (70-105) mg/dL Calcium 9.1 (8.6-10.3) mg/dL - VTE Documentation of Mechanical Device: Intermittent pneumatic compression device Consult Discharge Plan - Plan Referrals: Jovany Richardson MD [Partnered Physician] - Dong Camarena MD [Primary Care Provider] -
--- NOTE | 2018-05-10 10:11 | Discharge Summary ---
- NOTES TO OUTPATIENT PROVIDER Notes to Outpatient Provider: Follow up with PCP in 2-3 days after discharge. Recheck BMP and CBC at that time. Follow up with urology as directed. Orders not resulted at time of discharge: Pending orders 05/09/18 18:21 XR KUB [XR] Routine 05/09/18 18:50 Surgical Pathology [PTH] Routine Date of Encounter: 05/10/18 Time of Encounter: 10:09 - Discharge Diagnosis (1) Ureteral calculus Priority: Primary Status: Resolved (2) MEEK (acute kidney injury) Priority: Secondary Status: Resolved (3) Multiple sclerosis Priority: Secondary Status: Chronic Hospital course: Mr. Garcia is a 42 year old male who admitted for 5 mm obstructing stone in left proximal ureter along with mild hydronephrosis and prostate enlargement. He was admitted for observation to general medical floor. Urology was consulted. He had mild MEEK which resolved with IVF. Pain control was obtained with toradol and oxycodone PRN. He was taken to OR by urology and had left ureteroscopy, basket stone extraction, and left ureteral stent placement. He was advised on post-operative care and to remove stent at home in 4 days. He is pain-free and back to baseline today. He will follow up with PCP in 2-3 days after discharge. Repeat BMP and CBC can be checked at that time. He will follow up with urology as directed. Patient has met maximum benefit of this hospitalization and will be discharged home in stable condition. Discharge discussed with: patient, nurse - Time Spent with Patient Total time spent providing and/or coordinating discharge services: Less than 30 minutes - Discharge Medications Home Medications: Sildenafil Citrate [Revatio] 50 - 100 mg PO DAILY PRN 05/09/18 [History] Allergies/Adverse Reactions: 3 Allergy/AdvReac Type Severity Reaction Status Date / Time No Known Allergies Allergy Verified 03/25/16 09:31 Date of admission: 05/09/18 11:22 Primary care physician: Dong Camarena MD Consults: Urology Discharging clinician: Panchito Merritt Anticipated date of discharge: 05/10/18 - Constitutional Vitals: Temp Pulse Resp BP Pulse Ox 98.2 F 88 16 123/75 97 05/10/18 06:59 05/10/18 06:59 05/10/18 06:59 05/10/18 06:59 05/10/18 06:59 General appearance: Present: cooperative, A&O X 3, pleasant, no acute distress, answers questions appropriately - Respiratory Respiratory exam: Present: CTAB. Absent: accessory muscle use, rales, rhonchi, wheezes Additional comments: Normal WOB - Cardiovascular Cardiovascular exam: Present: RRR, +S1, +S2. Absent: diastolic murmur, gallop, rubs, systolic murmur Additional comments: No BLE edema - GI/Abdominal GI/Abdominal exam: Present: normal bowel sounds, soft. Absent: distended, hepatomegaly, mass, splenomegaly, tenderness - Back Exam Back exam: Absent: CVA tenderness (L), CVA tenderness (R) - Psychiatric Psychiatric exam: Present: normal affect, normal mood. Absent: agitated, anxious, depressed - Skin Skin exam: Present: dry, intact, warm. Absent: cyanosis, erythema, rash - Patient Status Disposition: Home, Self-Care Condition: Good Functional capacity at discharge: independent ambulation Overall status at discharge: patient is progressing back to baseline - Discharge Instructions Follow Up With: Jovany Richardson MD [Partnered Physician] - (Office will call patient at home with date and time of appt. Thank you) Dong Camarena MD [Primary Care Provider] - Additional Instructions: Follow up with PCP in 2-3 days after discharge. Recheck BMP and CBC at that time. Follow up with urology as directed. - Diet and Activity Activity: resume usual activities as tolerated Diet: advance to your usual diet - VTE Documentation of Mechanical Device: Intermittent pneumatic compression device
== END 2018-05-10 10:40 | disposition home or self-care (01) ==
LOC: 3ANU 08:23 → EMEROO 08:23 → 3ANU 11:23
PROVIDERS: ADMIT Internal Medicine; ATTEND Internal Medicine

== ENCOUNTER 2022-02-27 23:59 | Observation (INO) ==
[2022-02-28] MEDS ORDERED: Isovue-370 500 ML BOTTLE IVP ONE (03:42)
[2022-02-28] MEDS ORDERED: Morphine Sulfate 2 MG/ML SYRINGE IVP ONE (03:43)
[2022-02-28 04:34] LABS: Basophils % 0.1 %; Eosinophils % 0.1 %; Hematocrit 48.5 % (37.5-50.1); Hemoglobin 16.1 g/dL (12.9-16.9); Immature Granulocytes % 0.6 % (0-4); Lymphocytes # 0.9 K/mcL (0.6-4.6); Lymphocytes % 5.2 %; Mean Corpuscular HGB Conc 33.2 g/dL (31.6-35.5); Mean Corpuscular Hemoglobin 29.5 pg (28.0-33.3); Mean Corpuscular Volume 88.8 fL (83.0-100.0); Mean Platelet Volume 9.1 fL (9.4-12.4); Monocytes # 0.8 K/mcL (0.0-1.3); Monocytes % 4.9 %; Platelet Count 405 K/mcL (140-400); Red Blood Count 5.46 M/mcL (4.19-5.50); Red Cell Distribution Width 13.2 % (11.5-14.5); Segmented Neutrophils % 89.1 %; White Blood Count 16.8 K/mcL (4.3-11.1)
[2022-02-28 04:52] LABS: BUN/Creatinine Ratio 20 (6-26); Blood Urea Nitrogen 21 mg/dL (6-20); Calcium 10.7 mg/dL (8.6-10.3); Carbon Dioxide 27 mEq/L (23-29); Chloride 99 mEq/L (98-107); Glucose 114 mg/dL (70-105); Osmolality,Calculated 290 (280-300); Potassium 3.4 mEq/L (3.5-5.1); Sodium 138 mEq/L (136-145); eGFR For African Americans > 60 (> 60); eGFR For Non-African Americans > 60 (> 60)
[2022-02-28 05:25] LABS: INR 1.1; Prothrombin Time 12.4 Seconds (9.4-12.1)
[2022-02-28 05:27] LABS: Activated Partial Thrombo Time 27.3 Seconds (26.0-36.0)
[2022-02-28] MEDS ORDERED: Gadolinium Contrast Agent (WT Based) IV PRN ×2 (06:26→06:39)
[2022-02-28] MEDS ORDERED: *HR* HYDROcodone/Acet 5/325 mg TABLET PO ONE (06:30)
[2022-02-28] MEDS ORDERED: Ketorolac 30 MG/ML VIAL IVP ONE (06:30)
[2022-02-28] MEDS ORDERED: Pantoprazole 40 MG VIAL IVP ONE (06:39)
[2022-02-28] MEDS: methylPREDNISolone 125 MG/2 ML VIAL IVP SCH ×4 (06:53→23:01)
[2022-02-28 06:55] LABS: Bilirubin,Urine Negative (Negative); Blood,Urine Negative (Negative); Clarity,Urine Clear (Clear); Color,Urine Colorless (Yellow); Glucose,Urine (UA) Normal (Normal); Ketones,Urine Negative (Negative); Leukocyte Esterase,Urine Negative (Negative); Nitrite,Urine Negative (Negative); Protein,Urine Negative (Neg-Trace); Specific Gravity,Urine > 1.030 (1.010-1.025); Urobilinogen,Urine Normal (Normal)
[2022-02-28] MEDS ORDERED: Ondansetron 4 MG/2 ML VIAL IVP PRN (08:09)
[2022-02-28] MEDS ORDERED: Mag Hydrox/Al Hydrox/Simeth 30 ML UDC PO PRN (08:09)
[2022-02-28] MEDS ORDERED: Naloxone 0.4 MG/ML INJ IVP PRN (08:09)
[2022-02-28] MEDS ORDERED: Acetaminophen 325 MG TABLET PO PRN (08:09)
[2022-02-28] MEDS ORDERED: MOM Conc 10 ML UD.LIQ PO PRN (08:09)
[2022-02-28] MEDS ORDERED: *HR* HYDROcodone/Acet 5/325 mg TABLET PO PRN (08:09)
[2022-02-28 09:11] LABS: Creatine Kinase 108 Units/L (30-223)
[2022-02-28 09:46] LABS: C-Reactive Protein < 5 mg/L (Less than 10)
[2022-02-28] MEDS: *HR* OxyCODONE Immed Rel 5 MG TABLET PO PRN (11:35)
[2022-02-28] MEDS: 0.9 % Sodium Chloride 1,000 ML IVC SCH ×2 (11:41→23:01)
[2022-03-01 01:42] LABS: Basophils % 0.1 %; Hematocrit 38.8 % (37.5-50.1); Lymphocytes # 0.8 K/mcL (0.6-4.6); Mean Corpuscular HGB Conc 33.5 g/dL (31.6-35.5); Mean Corpuscular Volume 89.6 fL (83.0-100.0); Mean Platelet Volume 9.3 fL (9.4-12.4); Monocytes # 0.3 K/mcL (0.0-1.3); Monocytes % 2.6 %; Neutrophils # 11.3 K/mcL (1.6-8.9); Platelet Count 289 K/mcL (140-400); Red Blood Count 4.33 M/mcL (4.19-5.50); Red Cell Distribution Width 13.2 % (11.5-14.5); Segmented Neutrophils % 90.3 %; White Blood Count 12.5 K/mcL (4.3-11.1)
[2022-03-01 01:59] LABS: Alanine Aminotransferase 10 Units/L (7-52); Albumin/Globulin Ratio 1.7 (1.1-2.2); Alkaline Phosphatase 62 Units/L (34-104); Aspartate Amino Transferase 9 Units/L (13-39); BUN/Creatinine Ratio 24 (6-26); Bilirubin,Total 0.4 mg/dL (0.3-1.0); Blood Urea Nitrogen 21 mg/dL (6-20); Calcium 9.3 mg/dL (8.6-10.3); Carbon Dioxide 25 mEq/L (23-29); Chloride 106 mEq/L (98-107); Globulin 2.3 g/dL (2.4-3.5); Glucose 133 mg/dL (70-105); Osmolality,Calculated 293 (280-300); Phosphorous 3.7 mg/dL (2.7-4.5); Potassium 4.2 mEq/L (3.5-5.1); Sodium 139 mEq/L (136-145); Total Protein 6.3 g/dL (6.4-8.9); eGFR For African Americans > 60 (> 60); eGFR For Non-African Americans > 60 (> 60)
[2022-03-01] MEDS: *HR* OxyCODONE Immed Rel 5 MG TABLET PO PRN (06:04)
[2022-03-01] MEDS: methylPREDNISolone 125 MG/2 ML VIAL IVP SCH ×2 (06:04→11:55)
[2022-03-01] MEDS ORDERED: *HR* Heparin 5,000 UNIT/ML VIAL SQ SCH (14:00)
[2022-03-01 16:13] VITALS: BP 162/89; PULSE 70; TEMP 98; O2SAT 98
== END 2022-03-01 17:00 | disposition home or self-care (01) ==
LOC: 3ANU 23:59 → EMEROOARM 23:59 → 3ANU 02-28 08:44
PROVIDERS: ADMIT Internal Medicine; ATTEND Internal Medicine